=== PATIENT | female | born 1945 | race Caucasian/White ===

== ENCOUNTER 2021-08-29 08:07 | Day surgery (SDC) | payer MEDICARE, MEDICAID ==
[~2021-08-29] VITALS: Ht 157.5 cm; Wt 90.7 kg
[~2021-08-29 08:07] MED LIST: ASPIRIN81 MG PO; CLOBETASOL0.05 % EX; CYCLOBENZAPRINE10 MG PO; DULOXETINE HCL30 MG PO; FEXOFENADINE H180 M1 PO; LIPITOR10 M1 PO; MELADOX3 MG PO; MELATONIN3 M1 PO; NORVASC5 M1 PO; OXYCODONE5 M1 PO; ROPINIROLE0.5 MG PO; TEMAZEPAM30 MG PO; [UNRECOGNIZED DRUG - OTHER] PO; [UNRECOGNIZED DRUG - OTHER] TOP
--- NOTE | 2021-08-29 12:12 | NUR ---
PER PHYSICIAN ORDER, RX. OBI HOYOS. TAKE DIRECTED #1, CALLED INTO [facility] AT [facility]. PATIENT AWARE TO BUSINESS SERVICES ANALYST AND TO RETURN TO OR ON 08/30/21 FOR COLONOSCOPY PROCEDURE.
[2021-08-29 13:10] VITALS: BP 128/60
== END 2021-08-29 12:31 | disposition home or self-care (01) ==
LOC: ENDO 08:07 → ORM 08:45 → ENDO 10:20
PROVIDERS: ATTEND Surgery
PROC: 0DJD8ZZ Inspection of Lower Intestinal Tract, Via Natural or Artificial Opening Endoscopic (ICD-10-PCS; principal; 2021-08-29)
DX: Z12.11 Encounter for screening for malignant neoplasm of colon (principal); K57.30 Diverticulosis of large intestine without perforation or abscess without bleeding; Z85.038 Personal history of other malignant neoplasm of large intestine; Z98.84 Bariatric surgery status

== ENCOUNTER 2021-08-30 06:53 | Day surgery (SDC) | payer MEDICARE, MEDICAID ==
[~2021-08-30] VITALS: Ht 157.5 cm; Wt 90.7 kg
[2021-08-30 09:18] VITALS: BP 124/72
== END 2021-08-30 09:25 | disposition home or self-care (01) ==
LOC: ORM 06:53
PROVIDERS: ATTEND Surgery
PROC: 0DJD8ZZ Inspection of Lower Intestinal Tract, Via Natural or Artificial Opening Endoscopic (ICD-10-PCS; principal; 2021-08-30)
DX: Z12.11 Encounter for screening for malignant neoplasm of colon (principal); K57.30 Diverticulosis of large intestine without perforation or abscess without bleeding; K64.8 Other hemorrhoids; K64.4 Residual hemorrhoidal skin tags; Z98.84 Bariatric surgery status; Z85.038 Personal history of other malignant neoplasm of large intestine
CPT/HCPCS: G0105

== ENCOUNTER 2021-09-19 08:37 | Observation (INO) | payer MEDICARE, MEDICAID ==
[2021-09-19] VITALS (8 sets, daily range): BP systolic 111–132; BP diastolic 47–70
[~2021-09-19] VITALS: Ht 157.5 cm; Wt 88.9 kg
[2021-09-20] VITALS: BP 92/53
[2021-09-20 04:00] VITALS: BP 105/66
[2021-09-20 07:19] VITALS: BP 101/62
[2021-09-20 10:31] VITALS: BP 110/76
[2021-09-20 14:16] VITALS: BP 115/76
[2021-09-20 19:00] VITALS: BP 127/73
[2021-09-21] VITALS: BP 130/74
[2021-09-21 04:00] VITALS: BP 125/80
[2021-09-21 06:08] LABS: HEMATOCRIT 28.8 % (37.0-47.0); HEMOGLOBIN 9.1 g/dl (12.0-16.0); IMMATURE GRANULOCYTES 0.4 % (0.0-5.0); MEAN CELL VOLUME 83.2 fL CALC (80.0-100.0); MEAN CORPUSCULAR HGB 26.3 pG CALC (26.0-32.0); MEAN CORPUSCULAR HGB CONC 31.6 g/dL CAL (32.0-36.0); RED BLOOD COUNT 3.46 mill/uL (4.20-5.60); RED CELL DISTRI WIDTH 15.3 % (11.5-15.5)
[2021-09-21 06:37] LABS: ANION GAP 10 (6-22 (CALC)); BUN 9 mg/dL (8-23); BUN/CREATININE RATIO 11 (12-20 (CALC)); CARBON DIOXIDE 24 mmol/l (22-30); CHLORIDE 103 mmol/l (95-108); CREATININE 0.8 mg/dL (0.5-1.0); GFR > 60 ML/MIN (>=60 (CALC)); GFR FOR AFR.AMER. > 60 ML/MIN (>=60 (CALC)); POTASSIUM 4.4 mmol/l (3.5-5.1); SODIUM 133 mmol/l (137-146)
[2021-09-21 07:40] VITALS: BP 142/65
[2021-09-21 15:00] VITALS: BP 183/86
[2021-09-21 15:30] VITALS: BP 142/88
[2021-09-21 19:00] VITALS: BP 155/69
[2021-09-22 04:00] VITALS: BP 139/67
[2021-09-22 08:20] VITALS: BP 131/61
[2021-09-22 10:40] VITALS: BP 139/62
[2021-09-22 15:38] VITALS: BP 149/67
[2021-09-22 19:00] VITALS: BP 138/61
[2021-09-23 03:30] VITALS: BP 134/63
[2021-09-23 05:36] LABS: HEMATOCRIT 28.3 % (37.0-47.0); MEAN CELL VOLUME 82.5 fL CALC (80.0-100.0); MEAN CORPUSCULAR HGB 26.2 pG CALC (26.0-32.0); MEAN CORPUSCULAR HGB CONC 31.8 g/dL CAL (32.0-36.0); RED BLOOD COUNT 3.43 mill/uL (4.20-5.60); RED CELL DISTRI WIDTH 15.1 % (11.5-15.5)
[2021-09-23 05:54] LABS: ANION GAP 8 (6-22 (CALC)); BUN 7 mg/dL (8-23); BUN/CREATININE RATIO 11 (12-20 (CALC)); CHLORIDE 101 mmol/l (95-108); CREATININE 0.6 mg/dL (0.5-1.0); GFR > 60 ML/MIN (>=60 (CALC)); GFR FOR AFR.AMER. > 60 ML/MIN (>=60 (CALC)); MAGNESIUM 2.2 mg/dL (1.6-2.3); POTASSIUM 4.3 mmol/l (3.5-5.1); SODIUM 134 mmol/l (137-146)
[2021-09-23 05:55] LABS: CARBON DIOXIDE 29 mmol/l (22-30)
[2021-09-23 08:04] VITALS: BP 129/65
[2021-09-23 15:17] VITALS: BP 123/71
[2021-09-23 18:57] VITALS: BP 137/80
[2021-09-24 00:08] VITALS: BP 108/63
[2021-09-24 04:05] VITALS: BP 126/61
[2021-09-24 08:03] VITALS: BP 152/78
== END 2021-09-24 14:52 | disposition home or self-care (01) ==
LOC: ORM 08:37 → MS2 13:53
PROVIDERS: Nurse Practitioner; ADMIT Surgery; ATTEND Surgery
PROC: 0WUF4JZ Supplement Abdominal Wall with Synthetic Substitute, Percutaneous Endoscopic Approach (ICD-10-PCS; principal; 2021-09-19)
PROC: 0DJ08ZZ Inspection of Upper Intestinal Tract, Via Natural or Artificial Opening Endoscopic (ICD-10-PCS; 2021-09-19)
DX: K43.2 Incisional hernia without obstruction or gangrene (principal); R13.10 Dysphagia, unspecified; I10 Essential (primary) hypertension; F41.9 Anxiety disorder, unspecified; F32.A Depression, unspecified; Z85.038 Personal history of other malignant neoplasm of large intestine; Z85.828 Personal history of other malignant neoplasm of skin; Z98.84 Bariatric surgery status
CPT/HCPCS: C1781; J0131; J2710

== ENCOUNTER 2021-12-23 09:07 | Emergency (ER) | payer MEDICARE, MEDICAID ==
[~2021-12-23] VITALS: Ht 157.5 cm; Wt 86.0 kg
[~2021-12-23 09:07] MED LIST changes: +REGLAN10 MG PO
[2021-12-23 10:00] VITALS: BP 149/86
[2021-12-23] MEDS ORDERED: DECADRON4 MG PO (10:24)
[2021-12-23 11:20] VITALS: BP 149/86
== END 2021-12-23 11:20 | disposition home or self-care (01) ==
LOC: ED 09:07
DX: M54.50 Low back pain, unspecified (principal); Z95.5 Presence of coronary angioplasty implant and graft

== ENCOUNTER 2022-03-17 09:08 | Observation (INO) | payer MEDICARE, MEDICAID ==
[2022-03-17] VITALS (12 sets, daily range): BP systolic 108–149; BP diastolic 47–77
[~2022-03-17] VITALS: Ht 157.5 cm; Wt 95.0 kg
[~2022-03-17 09:08] MED LIST changes: +ADULT ASPIRIN R81 MG PO; -ASPIRIN81 MG PO; -CLOBETASOL0.05 % EX; +CLOBETASOL0.05 % TOP; +DECADRON4 MG PO
[2022-03-17 09:58] LABS: HEMATOCRIT 34.1 % (37.0-47.0); HEMOGLOBIN 10.2 g/dl (12.0-16.0); IMMATURE GRANULOCYTES 0.3 % (0.0-5.0); MEAN CELL VOLUME 85.9 fL CALC (80.0-100.0); MEAN CORPUSCULAR HGB 25.7 pG CALC (26.0-32.0); MEAN CORPUSCULAR HGB CONC 29.9 g/dL CAL (32.0-36.0); NEUT# 4.23 thou/uL (2.00-7.15); RED BLOOD COUNT 3.97 mill/uL (4.20-5.60); RED CELL DISTRI WIDTH 16.1 % (11.5-15.5)
[2022-03-17 10:10] LABS: ALBUMIN 3.8 g/dL (3.2-5.0); ALKALINE PHOSPHATASE 67 u/l (38-126); BILIRUBIN, TOTAL 0.2 mg/dL (0.0-1.4); BUN 11 mg/dL (8-23); BUN/CREATININE RATIO 13 (12-20 (CALC)); CHLORIDE 110 mmol/l (95-108); CREATININE 0.9 mg/dL (0.5-1.0); GFR FOR AFR.AMER. > 60 ML/MIN (>=60 (CALC)); GFR OTHER RACES > 60 ML/MIN (>=60 (CALC)); SGOT/AST 112 u/l (9-36); SODIUM 140 mmol/l (137-146); TOTAL PROTEIN 6.4 g/dL (6.3-8.2)
[2022-03-17 10:14] LABS: ANION GAP 12 (6-22 (CALC)); CARBON DIOXIDE 21 mmol/l (22-30); POTASSIUM 3.3 mmol/l (3.5-5.1)
[2022-03-17] MEDS ORDERED: ALPRAZOLAM0.5 MG PO (10:37)
[2022-03-17] MEDS ORDERED: PERCOCET 5/325M1 TAB PO (10:39)
[2022-03-17] MEDS ORDERED: NORVASC5 M1 PO (11:16)
[2022-03-17] MEDS ORDERED: 24HR ALLERGY R180 MG PO (11:22)
[2022-03-17] MEDS ORDERED: FLONASE AL50 MCG/ACT (11:22)
[2022-03-17] MEDS ORDERED: TRAZODONE50 MG PO (11:23)
[2022-03-17] MEDS ORDERED: TESSALON PERLE100 MG PO (11:23)
[2022-03-17] MEDS ORDERED: MELATONIN3 M1 PO (11:23)
[2022-03-17] MEDS ORDERED: BETAMETHASONE0.051 TOP (11:25)
[2022-03-17] MEDS ORDERED: [UNRECOGNIZED DRUG - OTHER] PO (11:27)
[2022-03-17] MEDS ORDERED: MOTRIN200 MG PO (11:28)
[2022-03-17] MEDS ORDERED: SENEXON-S1 TAB PO (11:28)
[2022-03-18 00:38] VITALS: BP 105/60
[2022-03-18 03:44] VITALS: BP 137/72
[2022-03-18 12:59] VITALS: BP 112/54
[2022-03-18 15:57] VITALS: BP 108/59
[2022-03-18 19:55] VITALS: BP 170/71
[2022-03-19 05:37] VITALS: BP 124/69
[2022-03-19 06:57] LABS: HEMOGLOBIN 8.6 g/dl (12.0-16.0); MEAN CELL VOLUME 87.1 fL CALC (80.0-100.0); MEAN CORPUSCULAR HGB 25.8 pG CALC (26.0-32.0); MEAN CORPUSCULAR HGB CONC 29.7 g/dL CAL (32.0-36.0); RED BLOOD COUNT 3.33 mill/uL (4.20-5.60); RED CELL DISTRI WIDTH 16.6 % (11.5-15.5)
[2022-03-19 07:02] LABS: ANION GAP 11 (6-22 (CALC)); BUN 9 mg/dL (8-23); BUN/CREATININE RATIO 13 (12-20 (CALC)); CARBON DIOXIDE 21 mmol/l (22-30); CHLORIDE 111 mmol/l (95-108); CREATININE 0.7 mg/dL (0.5-1.0); GFR FOR AFR.AMER. > 60 ML/MIN (>=60 (CALC)); GFR OTHER RACES > 60 ML/MIN (>=60 (CALC)); MAGNESIUM 1.9 mg/dL (1.6-2.3); SODIUM 139 mmol/l (137-146)
[2022-03-19 07:03] LABS: POTASSIUM 4.3 mmol/l (3.5-5.1)
[2022-03-19 07:22] VITALS: BP 132/61
[2022-03-19 08:00] VITALS: BP 150/59
[2022-03-19 09:44] VITALS: BP 139/69
[2022-03-19 11:35] VITALS: BP 150/59
[2022-03-19] MEDS ORDERED: ZITHROMAX250 MG PO (12:55)
[2022-03-19] MEDS ORDERED: OMNICEF300 MG PO (12:55)
== END 2022-03-19 14:37 ==
LOC: ED 09:08 → ED-I 10:15 → ED 10:34 → MS2 10:35
PROVIDERS: Family Medicine; Hospitalist; ADMIT Internal Medicine; ATTEND Internal Medicine
DX: J18.9 Pneumonia, unspecified organism (principal); J44.0 Chronic obstructive pulmonary disease with (acute) lower respiratory infection; I10 Essential (primary) hypertension; F41.9 Anxiety disorder, unspecified; F32.A Depression, unspecified; G47.00 Insomnia, unspecified; G89.29 Other chronic pain; Z95.5 Presence of coronary angioplasty implant and graft; Z85.038 Personal history of other malignant neoplasm of large intestine; Z85.828 Personal history of other malignant neoplasm of skin; Z98.890 Other specified postprocedural states; Z20.822 Contact with and (suspected) exposure to COVID-19
CPT/HCPCS: G0378; J1650